=== PATIENT | female | born 1960 | race Hispanic/Latino ===

== ENCOUNTER 2025-06-17 13:21 | Inpatient (IN) | payer OTHER, SELFPAY ==
[2025-06-17] MEDS ORDERED: Iopamidol-370 76% 500 ML MDV (1 ML CHARGE) ONE (13:54)
[2025-06-17] MEDS ORDERED: Ketorolac Tromethamine 30 MG (1 mL) VIAL ONE ×3 (18:26→19:50)
[2025-06-17 18:31] LABS: #Basophils 0.04 10x3/uL (0.0-0.2); #Eosinophils 0.23 10x3/uL (0.0-0.7); #Monocytes 0.60 10x3/uL (0.11-0.59); #Neutrophils 3.21 10x3/uL (1.40-6.50); %Basophils 0.8 % (0.0-1.0); %Eosinophils 4.3 % (0.0-10.0); %Lymphocytes 22.9 % (21.0-51.0); %Monocytes 11.3 % (0.0-10.0); %Neutrophils 60.3 % (42.0-75.0); Hematocrit 34.3 % (36.0-47.0); Hemoglobin 11.1 g/dL (12.0-16.0); Mean Corpuscular Hemoglobin 29.8 pg (27.0-31.0); Mean Corpuscular Volume 92.0 fL (78.0-98.0); Platelet Count 507 10x3/uL (130-400); Red Blood Cell (RBC) Count 3.73 mill/uL (4.20-5.40); White Blood Cell (WBC) Count 5.32 10x3/uL (4.8-10.8)
[2025-06-17 18:47] LABS: ALT (SGPT) 73 U/L (Less than 34); AST (SGOT) 97 U/L (11-34); Albumin 2.2 g/dL (3.1-4.5); Alkaline Phosphatase 121 U/L (40-110); Anion Gap 12 mmol/L (10-20); BUN (Urea Nitrogen) 18 mg/dL (9.8-20.1); Bilirubin, Total 0.3 mg/dL (0.3-1.2); Calc. Creatinine Clearance 0 mL/min (70-130); Calcium 9.1 mg/dL (7.8-10.44); Carbon Dioxide 24 mmol/L (23-31); Chloride 103 mmol/L (98-107); Globulin 4.3 g/dL (2.4-3.5); Glucose 105 mg/dL (80-115); Potassium 3.4 mmol/L (3.5-5.1); Sodium 136 mmol/L (136-145)
[2025-06-17 23:37] VITALS: BMI 38.9
[2025-06-18 05:09] LABS: #Basophils 0.04 10x3/uL (0.0-0.2); #Eosinophils 0.37 10x3/uL (0.0-0.7); #Monocytes 0.68 10x3/uL (0.11-0.59); #Neutrophils 2.23 10x3/uL (1.40-6.50); %Basophils 0.9 % (0.0-1.0); %Eosinophils 8.5 % (0.0-10.0); %Lymphocytes 23.4 % (21.0-51.0); %Monocytes 15.6 % (0.0-10.0); %Neutrophils 51.1 % (42.0-75.0); Hematocrit 30.0 % (36.0-47.0); Hemoglobin 9.7 g/dL (12.0-16.0); Mean Corpuscular Hemoglobin 30.1 pg (27.0-31.0); Mean Corpuscular Volume 93.2 fL (78.0-98.0); Platelet Count 437 10x3/uL (130-400); Red Blood Cell (RBC) Count 3.22 mill/uL (4.20-5.40); White Blood Cell (WBC) Count 4.36 10x3/uL (4.8-10.8)
[2025-06-18 05:28] LABS: Anion Gap 11 mmol/L (10-20); BUN (Urea Nitrogen) 18 mg/dL (9.8-20.1); Calc. Creatinine Clearance 180 mL/min (70-130); Calcium 8.4 mg/dL (7.8-10.44); Carbon Dioxide 24 mmol/L (23-31); Chloride 106 mmol/L (98-107); Glucose 116 mg/dL (80-115); Potassium 3.5 mmol/L (3.5-5.1); Sodium 137 mmol/L (136-145)
[2025-06-18] MEDS ORDERED: Acetaminophen 325 MG TAB PO PRN (09:28)
[2025-06-18] MEDS ORDERED: MD-Gastroview 120 ML BOT ONE (12:02)
[2025-06-18] MEDS: Fat Emulsion 250 ML, Multivitamins, Adult 10 ML, TRACE ELEMENT CONCENTRATE 1 ML in D15W... IV SCH (13:46)
[2025-06-18] MEDS: Ondansetron PF 4 MG/2 ML Vial IVP PRN (18:43)
[2025-06-18] MEDS: Mometasone 100 MCG/Formoterol 5 MCG 120 PUFF INHALER INH SCH (19:22)
[2025-06-18] MEDS: Transdermal Patch Removal TOP SCH (20:55)
[2025-06-19 04:59] LABS: #Basophils Less than 0.03 10x3/uL (0.0-0.2); #Eosinophils 0.20 10x3/uL (0.0-0.7); #Monocytes 0.58 10x3/uL (0.11-0.59); #Neutrophils 3.52 10x3/uL (1.40-6.50); %Basophils 0.4 % (0.0-1.0); %Eosinophils 3.8 % (0.0-10.0); %Lymphocytes 17.0 % (21.0-51.0); %Monocytes 11.1 % (0.0-10.0); %Neutrophils 67.3 % (42.0-75.0); Hematocrit 33.7 % (36.0-47.0); Hemoglobin 10.7 g/dL (12.0-16.0); Mean Corpuscular Hemoglobin 29.8 pg (27.0-31.0); Mean Corpuscular Volume 93.9 fL (78.0-98.0); Platelet Count 496 10x3/uL (130-400); Red Blood Cell (RBC) Count 3.59 mill/uL (4.20-5.40); White Blood Cell (WBC) Count 5.23 10x3/uL (4.8-10.8)
[2025-06-19 05:14] LABS: INR-International Normal Ratio 1.1; Prothrombin Time 14.6 sec (12.0-14.7)
[2025-06-19 05:15] LABS: PTT 35.5 sec (22.9-36.1)
[2025-06-19 05:21] LABS: Anion Gap 9 mmol/L (10-20); BUN (Urea Nitrogen) 18 mg/dL (9.8-20.1); Calc. Creatinine Clearance 184 mL/min (70-130); Calcium 8.9 mg/dL (7.8-10.44); Carbon Dioxide 29 mmol/L (23-31); Chloride 103 mmol/L (98-107); Glucose 128 mg/dL (80-115); Magnesium 1.9 mg/dL (1.6-2.6); Potassium 3.1 mmol/L (3.5-5.1); Sodium 138 mmol/L (136-145)
[2025-06-19 05:23] LABS: ALT (SGPT) 49.0 U/L (Less than 34); AST (SGOT) 52.0 U/L (11-34); Cardiac Risk 3.6 (Less than 4.5); Cholesterol 82.0 mg/dl (< 200 Desired); HDL Cholesterol 23.0 mg/dL (>60 Neg Risk); LDL Cholesterol, Calculated 40.0 mg/dL; Triglycerides 97.0 mg/dL (Less than 150)
[2025-06-19] MEDS: Magnesium 2 GM/50 ML(in water) 2 GM in Premix 1 BAG IVPB SCH (08:24)
[2025-06-19] MEDS: Potassium Chloride 20 MEQ in Premix 1 BAG IVPB SCH (08:24)
[2025-06-19] MEDS: Multivit, Therapeutic 1 TAB PO SCH (08:25)
[2025-06-19] MEDS: Pantoprazole 40 MG DR.TAB PO SCH (08:25)
[2025-06-19] MEDS ORDERED: Non-Formulary Item 1 EACH (Multivitamin [Multivitamins] 1 TABLET Tablet) PO SCH (09:00)
[2025-06-19 10:11] VITALS: BMI 38.9
[2025-06-19] MEDS: Mupirocin 1 GM TUBE TP SCH (21:24)
[2025-06-20 08:43] LABS: #Basophils 0.04 10x3/uL (0.0-0.2); #Eosinophils 0.47 10x3/uL (0.0-0.7); #Monocytes 0.67 10x3/uL (0.11-0.59); #Neutrophils 4.85 10x3/uL (1.40-6.50); %Basophils 0.5 % (0.0-1.0); %Eosinophils 6.4 % (0.0-10.0); %Lymphocytes 17.2 % (21.0-51.0); %Monocytes 9.2 % (0.0-10.0); %Neutrophils 66.4 % (42.0-75.0); Hematocrit 33.6 % (36.0-47.0); Hemoglobin 10.7 g/dL (12.0-16.0); Mean Corpuscular Hemoglobin 30.0 pg (27.0-31.0); Mean Corpuscular Volume 94.1 fL (78.0-98.0); Platelet Count 433 10x3/uL (130-400); Red Blood Cell (RBC) Count 3.57 mill/uL (4.20-5.40); White Blood Cell (WBC) Count 7.31 10x3/uL (4.8-10.8)
[2025-06-20 08:58] LABS: ALT (SGPT) 44 U/L (Less than 34); AST (SGOT) 54 U/L (11-34); Anion Gap 11 mmol/L (10-20); BUN (Urea Nitrogen) 18 mg/dL (9.8-20.1); Calc. Creatinine Clearance 189 mL/min (70-130); Calcium 8.7 mg/dL (7.8-10.44); Carbon Dioxide 25 mmol/L (23-31); Chloride 104 mmol/L (98-107); Glucose 114 mg/dL (80-115); Magnesium 2.0 mg/dL (1.6-2.6); Potassium 3.9 mmol/L (3.5-5.1); Sodium 136 mmol/L (136-145)
[2025-06-20] MEDS: Magnesium 2 GM/50 ML(in water) 2 GM in Premix 1 BAG IVPB SCH (11:36)
[2025-06-20] MEDS: diphenhydrAMINE 50 MG/ML VIAL IVP SCH (23:22)
[2025-06-21] MEDS: Activase 2 MG VIAL CATH SCH (06:42)
[2025-06-21] MEDS: Acetaminophen 500 MG TAB PO PRN (06:43)
[2025-06-21 07:28] LABS: #Basophils 0.05 10x3/uL (0.0-0.2); #Eosinophils 0.52 10x3/uL (0.0-0.7); #Monocytes 0.66 10x3/uL (0.11-0.59); #Neutrophils 3.78 10x3/uL (1.40-6.50); %Basophils 0.8 % (0.0-1.0); %Eosinophils 7.9 % (0.0-10.0); %Lymphocytes 23.4 % (21.0-51.0); %Monocytes 10.0 % (0.0-10.0); %Neutrophils 57.6 % (42.0-75.0); Hematocrit 33.1 % (36.0-47.0); Hemoglobin 10.4 g/dL (12.0-16.0); Mean Corpuscular Hemoglobin 29.7 pg (27.0-31.0); Mean Corpuscular Volume 94.6 fL (78.0-98.0); Platelet Count 425 10x3/uL (130-400); Red Blood Cell (RBC) Count 3.50 mill/uL (4.20-5.40); White Blood Cell (WBC) Count 6.57 10x3/uL (4.8-10.8)
[2025-06-21 07:43] LABS: ALT (SGPT) 46 U/L (Less than 34); AST (SGOT) 59 U/L (11-34); Anion Gap 11 mmol/L (10-20); BUN (Urea Nitrogen) 15 mg/dL (9.8-20.1); Calc. Creatinine Clearance 189 mL/min (70-130); Calcium 8.5 mg/dL (7.8-10.44); Carbon Dioxide 24 mmol/L (23-31); Chloride 104 mmol/L (98-107); Glucose 100 mg/dL (80-115); Magnesium 2.0 mg/dL (1.6-2.6); Potassium 3.7 mmol/L (3.5-5.1); Sodium 135 mmol/L (136-145)
[2025-06-21] MEDS: Enoxaparin 40 MG (0.4 mL) SYRINGE SC SCH (08:25)
[2025-06-21] MEDS: Magnesium 2 GM/50 ML(in water) 2 GM in Premix 1 BAG IVPB SCH (11:40)
[2025-06-22 04:39] LABS: #Basophils 0.03 10x3/uL (0.0-0.2); #Eosinophils 0.45 10x3/uL (0.0-0.7); #Monocytes 0.60 10x3/uL (0.11-0.59); #Neutrophils 3.54 10x3/uL (1.40-6.50); %Basophils 0.5 % (0.0-1.0); %Eosinophils 7.0 % (0.0-10.0); %Lymphocytes 27.2 % (21.0-51.0); %Monocytes 9.4 % (0.0-10.0); %Neutrophils 55.4 % (42.0-75.0); Hematocrit 31.1 % (36.0-47.0); Hemoglobin 9.9 g/dL (12.0-16.0); Mean Corpuscular Hemoglobin 30.0 pg (27.0-31.0); Mean Corpuscular Volume 94.2 fL (78.0-98.0); Platelet Count 404 10x3/uL (130-400); Red Blood Cell (RBC) Count 3.30 mill/uL (4.20-5.40); White Blood Cell (WBC) Count 6.39 10x3/uL (4.8-10.8)
[2025-06-22 04:49] LABS: ALT (SGPT) 44 U/L (Less than 34); AST (SGOT) 51 U/L (11-34)
[2025-06-22 04:53] LABS: Anion Gap 7 mmol/L (10-20); BUN (Urea Nitrogen) 12 mg/dL (9.8-20.1); Calc. Creatinine Clearance 277 mL/min (70-130); Calcium 6.0 mg/dL (7.8-10.44); Carbon Dioxide 19 mmol/L (23-31); Chloride 115 mmol/L (98-107); Glucose 67 mg/dL (80-115); Magnesium 1.4 mg/dL (1.6-2.6); Potassium 2.8 mmol/L (3.5-5.1); Sodium 138 mmol/L (136-145)
[2025-06-22] MEDS: Magnesium Sulfate In Water 4 GM in Premix 1 BAG IVPB SCH (09:06)
[2025-06-22] MEDS: CALCIUM GLUC 1 GM/NS 50 ML 1 GM in Premix 1 BAG IVPB SCH (12:07)
[2025-06-22 17:45] LABS: Potassium 4.2 mmol/L (3.5-5.1)
[2025-06-23 05:08] LABS: ALT (SGPT) 40 U/L (Less than 34); AST (SGOT) 49 U/L (11-34); Anion Gap 9 mmol/L (10-20); BUN (Urea Nitrogen) 11 mg/dL (9.8-20.1); Calc. Creatinine Clearance 189 mL/min (70-130); Calcium 8.7 mg/dL (7.8-10.44); Carbon Dioxide 24 mmol/L (23-31); Chloride 110 mmol/L (98-107); Glucose 94 mg/dL (80-115); Potassium 4.5 mmol/L (3.5-5.1); Sodium 138 mmol/L (136-145)
[2025-06-23 05:09] LABS: Magnesium 2.0 mg/dL (1.6-2.6)
[2025-06-23] MEDS: Magnesium 2 GM/50 ML(in water) 2 GM in Premix 1 BAG IVPB SCH (08:27)
[2025-06-24 05:35] LABS: ALT (SGPT) 48 U/L (Less than 34); AST (SGOT) 71 U/L (11-34)
[2025-06-24 05:45] LABS: Magnesium 1.9 mg/dL (1.6-2.6)
[2025-06-24] MEDS: Magnesium 2 GM/50 ML(in water) 2 GM in Premix 1 BAG IVPB SCH (09:09)
[2025-06-25 05:16] LABS: ALT (SGPT) 71 U/L (Less than 34); AST (SGOT) 114 U/L (11-34)
[2025-06-25 05:17] LABS: Magnesium 2.0 mg/dL (1.6-2.6)
[2025-06-25] MEDS: Magnesium 2 GM/50 ML(in water) 2 GM in Premix 1 BAG IVPB SCH (09:28)
[2025-06-25] MEDS: diphenhydrAMINE 25 MG CAP PO PRN (23:10)
[2025-06-27 16:44] VITALS: BP 117/78; TEMP 98.2
== END 2025-06-27 20:05 | disposition home or self-care (01) | DRG 395 ==
LOC: ERS 13:21 → SURG A 20:45 → OBSVTOIN 06-18 12:38
PROVIDERS: ADMIT Surgery; ATTEND Surgery
PROC: 3E03329 Introduction of Other Anti-infective into Peripheral Vein, Percutaneous Approach (ICD-10-PCS; 2025-06-17)
PROC: 3E0336Z Introduction of Nutritional Substance into Peripheral Vein, Percutaneous Approach (ICD-10-PCS; principal; 2025-06-18)
DX: K63.2 Fistula of intestine (principal); Z79.4 Long term (current) use of insulin; Z79.899 Other long term (current) drug therapy; Z98.890 Other specified postprocedural states
CPT/HCPCS: 36415; 36416; 74177; 74250; 80048; 80053; 80061; 82040; 83605; 83735; 84100; 84134; 84450; 84460; 85025; 85610; 85730; 87040; 94640; 94664; 96374; 96375; 96376; 97139; G0378; J0613; J1200; J1650; J1885; J2270; J2405; J2543; J2997; J3010; J3475; J3480; J7620; Q9963; Q9967

== ENCOUNTER 2025-06-28 21:14 | Emergency (ER) | payer OTHER ==
[2025-06-28 23:08] LABS: #Basophils 0.04 10x3/uL (0.0-0.2); #Eosinophils 0.14 10x3/uL (0.0-0.7); #Monocytes 1.20 10x3/uL (0.11-0.59); #Neutrophils 7.92 10x3/uL (1.40-6.50); %Basophils 0.4 % (0.0-1.0); %Eosinophils 1.3 % (0.0-10.0); %Lymphocytes 15.2 % (21.0-51.0); %Monocytes 10.9 % (0.0-10.0); %Neutrophils 71.9 % (42.0-75.0); Hematocrit 36.6 % (36.0-47.0); Hemoglobin 11.9 g/dL (12.0-16.0); Mean Corpuscular Hemoglobin 29.9 pg (27.0-31.0); Mean Corpuscular Volume 92.0 fL (78.0-98.0); Platelet Count 379 10x3/uL (130-400); Red Blood Cell (RBC) Count 3.98 mill/uL (4.20-5.40); White Blood Cell (WBC) Count 11.00 10x3/uL (4.8-10.8)
[2025-06-28 23:25] LABS: ALT (SGPT) 56 U/L (Less than 34); AST (SGOT) 45 U/L (11-34); Albumin 2.8 g/dL (3.1-4.5); Alkaline Phosphatase 93 U/L (40-110); Anion Gap 17 mmol/L (10-20); BUN (Urea Nitrogen) 15 mg/dL (9.8-20.1); Bilirubin, Total 0.4 mg/dL (0.3-1.2); Calc. Creatinine Clearance 0 mL/min (70-130); Calcium 9.7 mg/dL (7.8-10.44); Carbon Dioxide 19 mmol/L (23-31); Chloride 105 mmol/L (98-107); Globulin 4.4 g/dL (2.4-3.5); Glucose 102 mg/dL (80-115); Potassium 3.1 mmol/L (3.5-5.1); Sodium 138 mmol/L (136-145)
[2025-06-28 23:30] LABS: Troponin I Less than 0.010 ng/mL (< 0.028)
== END 2025-06-28 23:52 | disposition home or self-care (01) ==
LOC: ERS 21:14
DX: T85.638A Leakage of other specified internal prosthetic devices, implants and grafts, initial encounter (principal); E87.6 Hypokalemia; J45.909 Unspecified asthma, uncomplicated; Z79.51 Long term (current) use of inhaled steroids
CPT/HCPCS: 36415; 80053; 83605; 84484; 85025; 93005; 99283

== ENCOUNTER 2025-06-30 15:11 | Emergency (ER) | payer OTHER ==
[~2025-06-30 15:11] MED LIST: Iopamidol-370 76% 500 ML MDV (1 ML CHARGE) ONE
[2025-06-30 16:16] LABS: #Basophils 0.06 10x3/uL (0.0-0.2); #Eosinophils 0.12 10x3/uL (0.0-0.7); #Monocytes 1.03 10x3/uL (0.11-0.59); #Neutrophils 7.67 10x3/uL (1.40-6.50); %Basophils 0.6 % (0.0-1.0); %Eosinophils 1.2 % (0.0-10.0); %Lymphocytes 14.1 % (21.0-51.0); %Monocytes 9.9 % (0.0-10.0); %Neutrophils 73.9 % (42.0-75.0); Hematocrit 39.7 % (36.0-47.0); Hemoglobin 12.5 g/dL (12.0-16.0); Mean Corpuscular Hemoglobin 30.1 pg (27.0-31.0); Mean Corpuscular Volume 95.7 fL (78.0-98.0); Platelet Count 362 10x3/uL (130-400); Red Blood Cell (RBC) Count 4.15 mill/uL (4.20-5.40); White Blood Cell (WBC) Count 10.37 10x3/uL (4.8-10.8)
[2025-06-30 16:33] LABS: ALT (SGPT) 50 U/L (Less than 34); AST (SGOT) 46 U/L (11-34); Albumin 2.9 g/dL (3.1-4.5); Alkaline Phosphatase 86 U/L (40-110); Anion Gap 20 mmol/L (10-20); BUN (Urea Nitrogen) 13 mg/dL (9.8-20.1); Bilirubin, Total 0.4 mg/dL (0.3-1.2); Calc. Creatinine Clearance 0 mL/min (70-130); Calcium 10.0 mg/dL (7.8-10.44); Carbon Dioxide 18 mmol/L (23-31); Chloride 102 mmol/L (98-107); Globulin 4.8 g/dL (2.4-3.5); Glucose 89 mg/dL (80-115); Potassium 3.3 mmol/L (3.5-5.1); Sodium 137 mmol/L (136-145)
[2025-06-30] MEDS ORDERED: Ondansetron PF 4 MG/2 ML Vial ONE (18:05)
== END 2025-06-30 21:35 | disposition home or self-care (01) ==
LOC: ERS 15:11
DX: K94.03 Colostomy malfunction (principal)
CPT/HCPCS: 36415; 74177; 80053; 83605; 85025; 87040; 87149; 93005; 96374; 96375; J2270; J2405; Q9967

== ENCOUNTER 2025-07-02 21:27 | Emergency (ER) | payer OTHER ==
[2025-07-02] MEDS ORDERED: Ketorolac Tromethamine 30 MG (1 mL) VIAL ONE (22:39)
[2025-07-02] MEDS ORDERED: Ondansetron PF 4 MG/2 ML Vial ONE (22:40)
[2025-07-02 23:19] LABS: #Basophils 0.03 10x3/uL (0.0-0.2); #Eosinophils 0.26 10x3/uL (0.0-0.7); #Monocytes 1.16 10x3/uL (0.11-0.59); #Neutrophils 7.45 10x3/uL (1.40-6.50); %Basophils 0.3 % (0.0-1.0); %Eosinophils 2.6 % (0.0-10.0); %Lymphocytes 12.2 % (21.0-51.0); %Monocytes 11.4 % (0.0-10.0); %Neutrophils 73.1 % (42.0-75.0); Hematocrit 37.3 % (36.0-47.0); Hemoglobin 12.4 g/dL (12.0-16.0); Mean Corpuscular Hemoglobin 30.1 pg (27.0-31.0); Mean Corpuscular Volume 90.5 fL (78.0-98.0); Platelet Count 408 10x3/uL (130-400); Red Blood Cell (RBC) Count 4.12 mill/uL (4.20-5.40); White Blood Cell (WBC) Count 10.18 10x3/uL (4.8-10.8)
[2025-07-02 23:43] LABS: ALT (SGPT) 42 U/L (Less than 34); AST (SGOT) 51 U/L (11-34); Albumin 2.8 g/dL (3.1-4.5); Alkaline Phosphatase 79 U/L (40-110); Anion Gap 15 mmol/L (10-20); BUN (Urea Nitrogen) 11 mg/dL (9.8-20.1); Bilirubin, Total 0.4 mg/dL (0.3-1.2); Calc. Creatinine Clearance 0 mL/min (70-130); Calcium 9.8 mg/dL (7.8-10.44); Carbon Dioxide 24 mmol/L (23-31); Chloride 102 mmol/L (98-107); Globulin 4.8 g/dL (2.4-3.5); Glucose 114 mg/dL (80-115); Potassium 2.4 mmol/L (3.5-5.1); Sodium 139 mmol/L (136-145)
[2025-07-03] MEDS ORDERED: NS 0.9% w/ 20 MEQ KCL 0 ML ONE (00:04)
[2025-07-03] MEDS ORDERED: D5 1/2 NS w/20 mEq KCL 1,000 ML ONE (00:12)
[2025-07-03] MEDS ORDERED: Magnesium 2 GM/50 ML BAG (IN WATER) ONE (00:12)
[2025-07-03 00:27] LABS: Lipase 36 U/L (8-78); Magnesium 1.8 mg/dL (1.6-2.6)
[2025-07-03] MEDS ORDERED: NS 0.9% w/ 20 MEQ KCL 1,000 ML ONE (00:29)
[2025-07-03 00:32] LABS: Troponin I Less than 0.010 ng/mL (< 0.028)
== END 2025-07-03 03:39 | disposition home or self-care (01) ==
LOC: ERS 21:27
DX: R10.84 Generalized abdominal pain (principal); E87.6 Hypokalemia
CPT/HCPCS: 36415; 74177; 80053; 83605; 83690; 83735; 84484; 85025; 93005; 96361; 96365; 96366; 96375; J1885; J2405; J3010; J3475; J3480; Q9967

== ENCOUNTER 2025-07-07 17:43 | Emergency (ER) | payer OTHER ==
[2025-07-07 18:31] LABS: #Basophils 0.03 10x3/uL (0.0-0.2); #Eosinophils 0.09 10x3/uL (0.0-0.7); #Monocytes 1.09 10x3/uL (0.11-0.59); #Neutrophils 6.43 10x3/uL (1.40-6.50); %Basophils 0.3 % (0.0-1.0); %Eosinophils 0.9 % (0.0-10.0); %Lymphocytes 19.3 % (21.0-51.0); %Monocytes 11.5 % (0.0-10.0); %Neutrophils 67.7 % (42.0-75.0); Hematocrit 41.2 % (36.0-47.0); Hemoglobin 13.6 g/dL (12.0-16.0); Mean Corpuscular Hemoglobin 29.5 pg (27.0-31.0); Mean Corpuscular Volume 89.4 fL (78.0-98.0); Platelet Count 532 10x3/uL (130-400); Red Blood Cell (RBC) Count 4.61 mill/uL (4.20-5.40); White Blood Cell (WBC) Count 9.51 10x3/uL (4.8-10.8)
[2025-07-07 19:00] LABS: ALT (SGPT) 25 U/L (Less than 34); AST (SGOT) 45 U/L (11-34); Albumin 2.8 g/dL (3.1-4.5); Alkaline Phosphatase 80 U/L (40-110); Anion Gap 18 mmol/L (10-20); BUN (Urea Nitrogen) 20 mg/dL (9.8-20.1); Bilirubin, Total 0.4 mg/dL (0.3-1.2); Calc. Creatinine Clearance 0 mL/min (70-130); Calcium 9.9 mg/dL (7.8-10.44); Carbon Dioxide 17 mmol/L (23-31); Chloride 97 mmol/L (98-107); Globulin 5.4 g/dL (2.4-3.5); Glucose 95 mg/dL (80-115); Potassium 4.1 mmol/L (3.5-5.1); Sodium 128 mmol/L (136-145)
[2025-07-07 19:10] LABS: Actual Bicarbonate (HCO3v) 17.8 mEq/L (22-28); Base Excess -4.7 mEq/L (-2.0 to +3.0); Calcium, Ionized (venous) 1.10 mmol/L (1.16-1.32); Chloride (VBG) 98 mmol/L (98-106); Hematocrit-VBG 44 % (36.0-47.0); Hemoglobin (Hb) 15.1 g/dL (11.7-16.0); Potassium (VBG) 4.40 mmol/L (3.70-5.30); Sodium 129 mmol/L (133-146)
== END 2025-07-07 22:47 | disposition home or self-care (01) ==
LOC: ERS 17:43
DX: T85.698A Other mechanical complication of other specified internal prosthetic devices, implants and grafts, initial encounter (principal); J45.909 Unspecified asthma, uncomplicated; Z79.51 Long term (current) use of inhaled steroids
CPT/HCPCS: 71045; 80053; 82805; 83605; 85025; 87040; 94760; 96372; J2270

== ENCOUNTER 2025-07-08 18:15 | Observation (INO) | payer OTHER ==
[2025-07-08 22:20] LABS: #Basophils 0.03 10x3/uL (0.0-0.2); #Eosinophils 0.17 10x3/uL (0.0-0.7); #Monocytes 1.05 10x3/uL (0.11-0.59); #Neutrophils 7.03 10x3/uL (1.40-6.50); %Basophils 0.3 % (0.0-1.0); %Eosinophils 1.7 % (0.0-10.0); %Lymphocytes 16.3 % (21.0-51.0); %Monocytes 10.6 % (0.0-10.0); %Neutrophils 70.7 % (42.0-75.0); Hematocrit 41.1 % (36.0-47.0); Hemoglobin 13.7 g/dL (12.0-16.0); Mean Corpuscular Hemoglobin 29.6 pg (27.0-31.0); Mean Corpuscular Volume 88.8 fL (78.0-98.0); Platelet Count 546 10x3/uL (130-400); Red Blood Cell (RBC) Count 4.63 mill/uL (4.20-5.40); White Blood Cell (WBC) Count 9.94 10x3/uL (4.8-10.8)
[2025-07-08 22:58] LABS: ALT (SGPT) 29 U/L (Less than 34); AST (SGOT) 55 U/L (11-34); Albumin 2.6 g/dL (3.1-4.5); Alkaline Phosphatase 85 U/L (40-110); Anion Gap 19 mmol/L (10-20); BUN (Urea Nitrogen) 26 mg/dL (9.8-20.1); Bilirubin, Total 0.3 mg/dL (0.3-1.2); Calc. Creatinine Clearance 0 mL/min (70-130); Calcium 9.6 mg/dL (7.8-10.44); Carbon Dioxide 16 mmol/L (23-31); Chloride 97 mmol/L (98-107); Globulin 5.5 g/dL (2.4-3.5); Glucose 95 mg/dL (80-115); Lipase 18 U/L (8-78); Magnesium 2.0 mg/dL (1.6-2.6); Potassium 4.2 mmol/L (3.5-5.1); Sodium 128 mmol/L (136-145)
[2025-07-09] MEDS ORDERED: Ondansetron PF 4 MG/2 ML Vial IVP PRN (02:08)
[2025-07-09 02:33] LABS: Actual Bicarbonate (HCO3v) 21.9 mEq/L (22-28); Base Excess -2.5 mEq/L (-2.0 to +3.0); Calcium, Ionized (venous) 1.20 mmol/L (1.16-1.32); Chloride (VBG) 96 mmol/L (98-106); Hematocrit-VBG 42 % (36.0-47.0); Hemoglobin (Hb) 14.3 g/dL (11.7-16.0); Potassium (VBG) 3.70 mmol/L (3.70-5.30); Sodium 130 mmol/L (133-146)
[2025-07-09 02:52] LABS: Osmolality, Serum 277 mOsm/kg (280-301)
[2025-07-09 02:56] LABS: Anion Gap 16 mmol/L (10-20); BUN (Urea Nitrogen) 24 mg/dL (9.8-20.1); Calc. Creatinine Clearance 0 mL/min (70-130); Calcium 9.4 mg/dL (7.8-10.44); Carbon Dioxide 20 mmol/L (23-31); Chloride 97 mmol/L (98-107); Glucose 89 mg/dL (80-115); Potassium 3.5 mmol/L (3.5-5.1); Sodium 129 mmol/L (136-145)
[2025-07-09 03:32] VITALS: BMI 36.8
[2025-07-09] MEDS: Albumin 25% 25 GM (100 mL) BOT IVPB SCH (05:17)
[2025-07-09] MEDS: Acetaminophen 325 MG TAB PO PRN (13:32)
[2025-07-09 14:09] LABS: Osmolality, Urine 650 mOsm/kg (50-1200)
[2025-07-09] MEDS: Mometasone 100 MCG/Formoterol 5 MCG 120 PUFF INHALER INH SCH (19:10)
[2025-07-10 08:14] LABS: #Basophils 0.03 10x3/uL (0.0-0.2); #Eosinophils 0.67 10x3/uL (0.0-0.7); #Monocytes 0.80 10x3/uL (0.11-0.59); #Neutrophils 2.92 10x3/uL (1.40-6.50); %Basophils 0.5 % (0.0-1.0); %Eosinophils 11.5 % (0.0-10.0); %Lymphocytes 23.8 % (21.0-51.0); %Monocytes 13.7 % (0.0-10.0); %Neutrophils 50.2 % (42.0-75.0); Hematocrit 37.9 % (36.0-47.0); Hemoglobin 12.5 g/dL (12.0-16.0); Mean Corpuscular Hemoglobin 29.4 pg (27.0-31.0); Mean Corpuscular Volume 89.2 fL (78.0-98.0); Platelet Count 503 10x3/uL (130-400); Red Blood Cell (RBC) Count 4.25 mill/uL (4.20-5.40); White Blood Cell (WBC) Count 5.83 10x3/uL (4.8-10.8)
[2025-07-10 08:26] LABS: Anion Gap 15 mmol/L (10-20); BUN (Urea Nitrogen) 19 mg/dL (9.8-20.1); Calc. Creatinine Clearance 92 mL/min (70-130); Calcium 9.7 mg/dL (7.8-10.44); Carbon Dioxide 24 mmol/L (23-31); Chloride 99 mmol/L (98-107); Glucose 74 mg/dL (80-115); Potassium 3.3 mmol/L (3.5-5.1); Sodium 135 mmol/L (136-145)
[2025-07-10] MEDS: Multivit, Therapeutic 1 TAB PO SCH (08:35)
[2025-07-10] MEDS: Pantoprazole 40 MG DR.TAB PO SCH (08:35)
[2025-07-10 12:13] VITALS: BP 100/65; TEMP 98.1
[2025-07-10] MEDS ORDERED: Transdermal Patch Removal TOP SCH (21:00)
== END 2025-07-10 14:25 | disposition home or self-care (01) ==
LOC: ERS 18:15 → T4-B 07-09 00:04
PROVIDERS: ADMIT Internal Medicine; ATTEND Internal Medicine
DX: N17.9 Acute kidney failure, unspecified (principal); I10 Essential (primary) hypertension; E03.9 Hypothyroidism, unspecified; E87.20 Acidosis, unspecified; E87.1 Hypo-osmolality and hyponatremia; E87.6 Hypokalemia; E66.9 Obesity, unspecified; Z68.36 Body mass index [BMI] 36.0-36.9, adult; Z98.890 Other specified postprocedural states
CPT/HCPCS: 36415; 36416; 80048; 80053; 82805; 83605; 83690; 83735; 83930; 83935; 84300; 85025; 94664; 96374; 97139; G0378; J7120; P9047

== ENCOUNTER 2025-09-15 12:45 | Emergency (ER) | payer OTHER, SELFPAY ==
[2025-09-15] MEDS ORDERED: Sodium Bicarbonate 2.5 MEQ/5 ML SDV ONE (14:55)
[2025-09-15] MEDS ORDERED: Lidocaine 1% PF 5 ML VIAL ONE (14:55)
[2025-09-15 15:42] LABS: #Basophils 0.03 10x3/uL (0.0-0.2); #Eosinophils 0.28 10x3/uL (0.0-0.7); #Monocytes 0.82 10x3/uL (0.11-0.59); #Neutrophils 3.47 10x3/uL (1.40-6.50); %Basophils 0.5 % (0.0-1.0); %Eosinophils 4.7 % (0.0-10.0); %Lymphocytes 22.0 % (21.0-51.0); %Monocytes 13.9 % (0.0-10.0); %Neutrophils 58.7 % (42.0-75.0); Hematocrit 39.3 % (36.0-47.0); Hemoglobin 12.7 g/dL (12.0-16.0); Mean Corpuscular Hemoglobin 29.5 pg (27.0-31.0); Mean Corpuscular Volume 91.2 fL (78.0-98.0); Platelet Count 268 10x3/uL (130-400); Red Blood Cell (RBC) Count 4.31 mill/uL (4.20-5.40); White Blood Cell (WBC) Count 5.91 10x3/uL (4.8-10.8)
[2025-09-15 17:02] LABS: ALT (SGPT) 31 U/L (Less than 34); AST (SGOT) 64 U/L (11-34); Albumin 2.5 g/dL (3.1-4.5); Alkaline Phosphatase 46 U/L (40-110); Anion Gap 14 mmol/L (10-20); BUN (Urea Nitrogen) 21 mg/dL (9.8-20.1); Bilirubin, Total 0.5 mg/dL (0.3-1.2); Calc. Creatinine Clearance 0 mL/min (70-130); Calcium 9.3 mg/dL (7.8-10.44); Carbon Dioxide 29 mmol/L (23-31); Chloride 99 mmol/L (98-107); Globulin 4.4 g/dL (2.4-3.5); Glucose 84 mg/dL (80-115); Potassium 3.3 mmol/L (3.5-5.1); Sodium 139 mmol/L (136-145)
== END 2025-09-15 15:58 | disposition home or self-care (01) ==
LOC: ERS 12:45
DX: L03.113 Cellulitis of right upper limb (principal); J45.909 Unspecified asthma, uncomplicated; Z79.899 Other long term (current) drug therapy
CPT/HCPCS: 36573; 80053; 83605; 85025; 87040; 93005; 99283; C1751

== ENCOUNTER 2025-10-10 08:55 | Emergency (ER) | payer OTHER | END 2025-10-10 11:22 | disposition home or self-care (01) | LOC: ERS 08:55 | DX: T82.898A Other specified complication of vascular prosthetic devices, implants and grafts, initial encounter (principal); L25.9 Unspecified contact dermatitis, unspecified cause | CPT/HCPCS: 99282 ==

== ENCOUNTER 2025-10-20 09:25 | Emergency (ER) | payer OTHER ==
[2025-10-20] MEDS ORDERED: Lidocaine 1% w/Epinephrine 1:100K 20 ML VIAL ONE (09:43)
[2025-10-20] MEDS ORDERED: Sodium Bicarbonate 2.5 MEQ/5 ML SDV ONE (09:43)
== END 2025-10-20 11:48 | disposition home or self-care (01) ==
LOC: ERS 09:25
DX: T82.898A Other specified complication of vascular prosthetic devices, implants and grafts, initial encounter (principal)
CPT/HCPCS: 36573; 99282; C1751; Q9967

== ENCOUNTER 2025-10-20 12:24 | Emergency (ER) | payer OTHER | END 2025-10-20 16:04 | disposition home or self-care (01) | LOC: ERS 12:24 | DX: T82.838A Hemorrhage due to vascular prosthetic devices, implants and grafts, initial encounter (principal); R58 Hemorrhage, not elsewhere classified; Z95.5 Presence of coronary angioplasty implant and graft | CPT/HCPCS: 99283 ==

== ENCOUNTER 2025-10-25 15:51 | Emergency (ER) | payer OTHER ==
[2025-10-25 17:13] LABS: #Basophils Less than 0.03 10x3/uL (0.0-0.2); #Eosinophils Less than 0.03 10x3/uL (0.0-0.7); #Monocytes 0.56 10x3/uL (0.11-0.59); #Neutrophils 6.54 10x3/uL (1.40-6.50); %Basophils 0.1 % (0.0-1.0); %Eosinophils 0.0 % (0.0-10.0); %Lymphocytes 10.3 % (21.0-51.0); %Monocytes 7.0 % (0.0-10.0); %Neutrophils 82.2 % (42.0-75.0); Hematocrit 39.3 % (36.0-47.0); Hemoglobin 12.9 g/dL (12.0-16.0); Mean Corpuscular Hemoglobin 30.1 pg (27.0-31.0); Mean Corpuscular Volume 91.6 fL (78.0-98.0); Platelet Count 237 10x3/uL (130-400); Red Blood Cell (RBC) Count 4.29 mill/uL (4.20-5.40); White Blood Cell (WBC) Count 7.96 10x3/uL (4.8-10.8)
[2025-10-25 17:30] LABS: ALT (SGPT) 28 U/L (Less than 34); AST (SGOT) 52 U/L (11-34); Albumin 2.7 g/dL (3.1-4.5); Alkaline Phosphatase 48 U/L (40-110); Anion Gap 13 mmol/L (10-20); BUN (Urea Nitrogen) 16 mg/dL (9.8-20.1); Bilirubin, Total 0.6 mg/dL (0.3-1.2); Calc. Creatinine Clearance 0 mL/min (70-130); Calcium 9.4 mg/dL (7.8-10.44); Carbon Dioxide 23 mmol/L (23-31); Chloride 108 mmol/L (98-107); Globulin 4.2 g/dL (2.4-3.5); Glucose 119 mg/dL (80-115); Lipase 10 U/L (8-78); Magnesium 1.9 mg/dL (1.6-2.6); Potassium 4.0 mmol/L (3.5-5.1); Sodium 140 mmol/L (136-145)
[2025-10-25] MEDS ORDERED: Ondansetron PF 4 MG/2 ML Vial ONE (17:50)
== END 2025-10-25 23:05 | disposition short-term general hospital (02) ==
LOC: ERS 15:51
DX: K56.609 Unspecified intestinal obstruction, unspecified as to partial versus complete obstruction (principal); I25.810 Atherosclerosis of coronary artery bypass graft(s) without angina pectoris; K44.9 Diaphragmatic hernia without obstruction or gangrene; Z93.3 Colostomy status; Z95.9 Presence of cardiac and vascular implant and graft, unspecified
CPT/HCPCS: 36415; 74177; 83605; 83690; 83735; 93005; 96374; 96375; J2270; J2405